=== PATIENT | male | born 1955 | race Caucasian/White ===

== ENCOUNTER 2018-02-10 10:27 | Day surgery (SDC) | payer MEDICAID ==
[2018-02-06 15:02] LABS: BASOPHILS % (AUTO) 0.2 % (0-1); EOSINOPHILS # (AUTO) 0.1 X10'3 (0-0.9); EOSINOPHILS % (AUTO) 1.3 % (0-6); LYMPHOCYTES # (AUTO) 1.5 X10'3 (1.1-4.8); LYMPHOCYTES % (AUTO) 13.2 % (21-51); MEAN CORPUSCULAR HEMOGLOBIN 30.3 PG (27.0-31.0); MEAN CORPUSCULAR HGB CONC 35.2 % (33.0-36.5); MEAN CORPUSCULAR VOLUME 86.1 FL (78-98); MEAN PLATELET VOLUME 8.1 FL (7.4-10.4); MONOCYTES # (AUTO) 0.4 X10'3 (0-0.9); MONOCYTES % (AUTO) 3.2 % (2-12); NEUTROPHILS # (AUTO) 9.1 X10'3 (1.8-7.7); NEUTROPHILS % (AUTO) 82.1 % (42-75); PRE OP HEMATOCRIT 42.3 % (42.0-52.0); PRE OP HEMOGLOBIN 14.9 g/dL (14.0-17.9); PRE OP PLATELET COUNT 254 X10'3 (140-440); RED BLOOD COUNT 4.92 X10'6 (4.70-6.10); RED CELL DISTRIBUTION WIDTH 14.6 % (11.5-14.5)
[2018-02-06 15:03] LABS: CLARITY,URINE CLEAR (Clear); COLOR,URINE YELLOW (Yellow); GLUCOSE, URINE NEGATIVE (Neg); KETONES,URINE NEGATIVE (Neg); LEUKOCYTE ESTERASE ,URINE NEGATIVE (Neg); NITRITES, URINE NEGATIVE (Neg); OCCULT BLOOD,URINE NEGATIVE (Neg); PROTEIN,URINE NEGATIVE (Neg); UROBILINOGEN,URINE 0.2 E.U/dL (0.2-1.0)
[2018-02-06 15:08] LABS: UA COLLECTION TYPE CLN CATCH MIDSTREAM
[2018-02-06 15:12] LABS: PRE OP INR 0.9 INR; PRE OP PROTIME 9.5 SECONDS (9.0-12.0)
[2018-02-06 15:17] LABS: ALKALINE PHOSPHATASE 108 IU/L (46-116); BLOOD UREA NITROGEN 12 MG/DL (7-18); BUN/CREATININE RATIO 16.9 (5.4-32.0); CALCIUM 8.8 MG/DL (8.5-10.1); CHLORIDE 100 MMOL/L (99-107); CREATININE 0.71 MG/DL (0.60-1.10); PRE OP ALT 38 U/L (30-65); PRE OP ANION GAP 7 (8-16); PRE OP AST 24 U/L (10-37); PRE OP BILIRUB, TOTAL 0.3 MG/DL (0.0-1.0); PRE OP GLUCOSE 117 MG/DL (70-104); PRE OP POTASSIUM 3.6 MMOL/L (3.4-5.1); PRE OP SODIUM 136 MMOL/L (135-145); TOTAL CARBON DIOXIDE 29.2 MMOL/L (24-32); eGFR > 90 ML/MIN
[~2018-02-10] VITALS: Ht 180.3 cm; Wt 78.9 kg
[2018-02-10] VITALS (8 sets, daily range): BP systolic 149–210; BP diastolic 70–114
[~2018-02-10 10:27] MED LIST: AMLO10TA4 PO; Cefazolin 2GM/50ML dext iso,osmotic IVPB IV ONE; HYDR-565 PO; LISI40TA4 PO; PANT-47 PO; SENN-161 PO; albuterol 2.5 MG/3 ML nebule NEB ONE; famotidine 20mg tablet PO ONE; meperidine/PF 25mg/ml syringe IV PRN; morphine 4 MG/ML inj SYRINge IV PRN; ondansetron/PF 4mg/2ml inj IV PRN; proCHLORperazine 10 MG/2 ml inj IV PRN; ringers solution, lacted 1,000 ML IV SCH
[2018-02-10] MEDS ORDERED: LIDOcaine 2% (20mg/ml) 5ml vial ONE (12:22)
[2018-02-10] MEDS ORDERED: propofol inj 20 ML IV ONE (12:22)
[2018-02-10] MEDS ORDERED: fentaNYL/PF 50MCG/1 ML 2ML syringe ONE (12:22)
[2018-02-10] MEDS ORDERED: midazolam 2 mg/2 ml injection ONE (12:23)
[2018-02-10] MEDS ORDERED: neostigmine methylsulfate 1 MG/ML 10ml vial ONE (12:42)
[2018-02-10] MEDS ORDERED: sevoflurane 250ml liquid IH ONE (12:42)
[2018-02-10] MEDS ORDERED: ondansetron/PF 4mg/2ml inj ONE (12:42)
[2018-02-10] MEDS ORDERED: dexamethasone sod phosphate 10mg/ml inj ONE (12:42)
[2018-02-10] MEDS ORDERED: rocuronium 10mg/ml inj IV ONE (12:47)
[2018-02-10] MEDS ORDERED: ketorolac trometh. 30mg/ml inj. ONE (13:34)
[2018-02-10] MEDS ORDERED: glycopyrrolate 0.2mg/ml inj ONE (13:37)
[2018-02-10] MEDS ORDERED: HYDROcodone/acetaminophen 10/325mg tab PO ONE (14:35)
== END 2018-02-10 14:56 | disposition home or self-care (01) ==
LOC: PAS 10:27
PROVIDERS: ATTEND Surgery
DX: K80.10 Calculus of gallbladder with chronic cholecystitis without obstruction (principal); J44.9 Chronic obstructive pulmonary disease, unspecified; F17.210 Nicotine dependence, cigarettes, uncomplicated; I10 Essential (primary) hypertension; M19.90 Unspecified osteoarthritis, unspecified site; K21.9 Gastro-esophageal reflux disease without esophagitis; I48.91 Unspecified atrial fibrillation; Z87.11 Personal history of peptic ulcer disease; Z72.89 Other problems related to lifestyle; Z86.19 Personal history of other infectious and parasitic diseases; Z79.891 Long term (current) use of opiate analgesic; Z79.899 Other long term (current) drug therapy; Z98.890 Other specified postprocedural states
CPT/HCPCS: 36415; 47562; 71046; 80053; 81003; 85025; 85610; 85730; 93005; 94640; A6251; J0690; J0780; J1100; J1885; J2001; J2175; J2250; J2270; J2405; J2704; J2710; J3010; J3490; J7120; A7000

== ENCOUNTER 2018-12-28 11:19 | Emergency (ER) | payer MEDICARE, MEDICAID ==
[~2018-12-28] VITALS: Ht 180.3 cm; Wt 75.0 kg
[~2018-12-28 11:19] MED LIST changes: -Cefazolin 2GM/50ML dext iso,osmotic IVPB IV ONE; +HYDR-4353 PO; -HYDR-565 PO; -SENN-161 PO; +SENN-162 PO; -albuterol 2.5 MG/3 ML nebule NEB ONE; -famotidine 20mg tablet PO ONE; -meperidine/PF 25mg/ml syringe IV PRN; -morphine 4 MG/ML inj SYRINge IV PRN; -ondansetron/PF 4mg/2ml inj IV PRN; -proCHLORperazine 10 MG/2 ml inj IV PRN; -ringers solution, lacted 1,000 ML IV SCH
[2018-12-28] MEDS ORDERED: albuterol 2.5 MG/3 ML nebule CONTNEB PRN (11:35)
[2018-12-28] MEDS ORDERED: methylPREDNISolone sod succ 125mg/2ml vial IV ONE (11:35)
[2018-12-28 12:01] LABS: BASOPHILS # (AUTO) 0.1 X10'3 (0-0.2); BASOPHILS % (AUTO) 0.8 % (0-1); EOSINOPHILS % (AUTO) 12.1 % (0-6); HEMATOCRIT 46.5 % (42.0-52.0); HEMOGLOBIN 15.6 g/dl (14.0-17.9); LYMPHOCYTES # (AUTO) 1.5 X10'3 (1.1-4.8); LYMPHOCYTES % (AUTO) 17.8 % (21-51); MEAN CORPUSCULAR HEMOGLOBIN 29.3 PG (27.0-31.0); MEAN CORPUSCULAR HGB CONC 33.5 g/dL (33.0-36.5); MEAN CORPUSCULAR VOLUME 87.6 FL (78-98); MEAN PLATELET VOLUME 8.4 FL (7.4-10.4); MONOCYTES # (AUTO) 0.6 X10'3 (0-0.9); MONOCYTES % (AUTO) 6.4 % (2-12); NEUTROPHILS # (AUTO) 5.4 X10'3 (1.8-7.7); NEUTROPHILS % (AUTO) 62.9 % (42-75); PLATELET COUNT 282 X10'3 (140-440); RED CELL DISTRIBUTION WIDTH 14.7 % (11.5-14.5); WHITE BLOOD COUNT 8.6 X10'3 (4.5-11.0)
[2018-12-28 12:15] LABS: ABG BASE EXCESS 2.4 mmol/L (-2.0-3.0); ABG HCO3 26.3 mmol/L (22.0-26.0); ABG OXYGEN SATURATION 95.1 % (95-98); ABG PCO2 (T) 38.6 mmHg (35.0-48.0); ABG PH (T) 7.451 (7.350-7.450); ABG PO2 (T) 73.2 mmHg (83-108); FCOHb 1.4 % (0.5-1.5); FLOW 2 L/min; FMetHb 0.2 % (0.3-1.12); FO2Hb 93.6 % (94-100); TOTAL HEMOGLOBIN 16.1 G/dl (14.0-18.0)
[2018-12-28 12:16] LABS: ALANINE AMINOTRANSFERASE 64 U/L (12-78); ALBUMIN 4.2 G/DL (3.4-5.0); ALBUMIN/GLOBULIN RATIO 1.1 (1.1-1.5); ALKALINE PHOSPHATASE 123 IU/L (46-116); ANION GAP 7 (8-16); ASPARTATE AMINO TRANSFERASE 22 U/L (10-37); BILIRUBIN,TOTAL 0.3 MG/DL (0.1-1.0); BLOOD UREA NITROGEN 17 MG/DL (7-18); BUN/CREATININE RATIO 27.4 (5.4-32.0); CALCIUM 9.8 MG/DL (8.5-10.1); CHLORIDE 102 MMOL/L (99-107); CREATININE 0.62 MG/DL (0.60-1.10); GLUCOSE 117 MG/DL (70-104); POTASSIUM 3.4 MMOL/L (3.5-5.1); SODIUM 138 MMOL/L (135-145); TOTAL CARBON DIOXIDE 28.7 MMOL/L (24-32); TOTAL PROTEIN 8.1 G/DL (6.4-8.2); eGFR > 90 ML/MIN
[2018-12-28] MEDS ORDERED: GUAI1TBM19 PO (13:32)
[2018-12-28] MEDS ORDERED: PRED20TA PO (13:32)
[2018-12-28] MEDS ORDERED: BECL7.3A INH (13:32)
[2018-12-28] MEDS ORDERED: ipratropium/albuterol 3ml nebule NEB ONE (13:35)
[2018-12-28 14:05] VITALS: BP 191/99
== END 2018-12-28 14:08 | disposition home or self-care (01) ==
LOC: ER 11:19
DX: J44.1 Chronic obstructive pulmonary disease with (acute) exacerbation (principal); I10 Essential (primary) hypertension; F12.90 Cannabis use, unspecified, uncomplicated; F17.200 Nicotine dependence, unspecified, uncomplicated; Z98.890 Other specified postprocedural states; Z56.0 Unemployment, unspecified; Z79.899 Other long term (current) drug therapy
CPT/HCPCS: 36415; 36600; 71045; 80053; 82803; 83605; 83880; 84484; 85018; 85025; 85610; 87040; 93005; 94640; 94644; 94760; 96374; 99285; J2930

== ENCOUNTER 2020-08-07 07:14 | Day surgery (SDC) | payer MEDICARE, MEDICAID ==
[~2020-08-07] VITALS: Ht 180.3 cm; Wt 84.2 kg
[2020-08-07] VITALS (11 sets, daily range): BP systolic 97–142; BP diastolic 54–74
[~2020-08-07 07:14] MED LIST changes: +BECL7.3A INH; +GUAI1TBM19 PO; -SENN-162 PO
[2020-08-07] MEDS ORDERED: normal saline 1,000 ML IV SCH (07:35)
[2020-08-07] MEDS ORDERED: diphenhydrAMINE 25mg capsule PO PRN (07:35)
[2020-08-07] MEDS ORDERED: iohexol 350 MG/1 ML 200ml bottle ONE (07:43)
[2020-08-07] MEDS ORDERED: fentaNYL/PF 50MCG/1 ML 2ML syringe ONE ×2 (07:43→08:37)
[2020-08-07] MEDS ORDERED: midazolam 2 mg/2 ml injection ONE ×4 (07:43→08:58)
[2020-08-07] MEDS ORDERED: heparin 1,000unit/ml 10ml vial 10 ML ONE (07:43)
[2020-08-07] MEDS ORDERED: LIDOcaine 1% (10mg/ml)w/preservative injection 20ml MDV ONE (07:43)
[2020-08-07] MEDS ORDERED: iohexol 350 MG/ML 50ML vial IV ONE (07:44)
[2020-08-07] MEDS ORDERED: LOSA25TA41 PO (07:59)
[2020-08-07] MEDS ORDERED: POTASSIUM PO (07:59)
[2020-08-07] MEDS ORDERED: supplements (07:59)
[2020-08-07] MEDS ORDERED: VARE0.5T (07:59)
[2020-08-07] MEDS ORDERED: SPIR25TA5 PO (07:59)
[2020-08-07] MEDS ORDERED: ATOR40TA72 PO (07:59)
[2020-08-07] MEDS ORDERED: PRED20TA (07:59)
[2020-08-07] MEDS ORDERED: AMLO10TA PO (07:59)
[2020-08-07] MEDS ORDERED: FURO20TA4 PO (07:59)
[2020-08-07 08:11] LABS: BASOPHILS % (AUTO) 0.3 % (0-1); EOSINOPHILS % (AUTO) 0.4 % (0-6); HEMATOCRIT 41.4 % (42.0-52.0); HEMOGLOBIN 14.2 g/dl (14.0-17.9); LYMPHOCYTES # (AUTO) 1.2 X10'3 (1.1-4.8); LYMPHOCYTES % (AUTO) 10.5 % (21-51); MEAN CORPUSCULAR HEMOGLOBIN 30.7 PG (27.0-31.0); MEAN CORPUSCULAR HGB CONC 34.3 g/dL (33.0-36.5); MEAN CORPUSCULAR VOLUME 89.6 FL (78-98); MEAN PLATELET VOLUME 7.7 FL (7.4-10.4); MONOCYTES # (AUTO) 0.5 X10'3 (0-0.9); MONOCYTES % (AUTO) 4.3 % (2-12); NEUTROPHILS # (AUTO) 9.9 X10'3 (1.8-7.7); NEUTROPHILS % (AUTO) 84.5 % (42-75); PLATELET COUNT 307 X10'3 (140-440); RED BLOOD COUNT 4.62 X10'6 (4.70-6.10); RED CELL DISTRIBUTION WIDTH 14.7 % (11.5-14.5); WHITE BLOOD COUNT 11.7 X10'3 (4.5-11.0)
[2020-08-07 08:25] LABS: ALBUMIN 3.9 G/DL (3.4-5.0); ANION GAP 10 (8-16); BLOOD UREA NITROGEN 17 MG/DL (7-18); BUN/CREATININE RATIO 23.3 (5.4-32.0); CALCIUM 8.9 MG/DL (8.5-10.1); CHLORIDE 100 MMOL/L (99-107); CREATININE 0.73 MG/DL (0.60-1.10); GLUCOSE 116 MG/DL (70-104); MAGNESIUM 1.6 MG/DL (1.5-2.4); POTASSIUM 3.5 MMOL/L (3.5-5.1); SODIUM 138 MMOL/L (135-145); TOTAL CARBON DIOXIDE 28.2 MMOL/L (24-32); eGFR > 90 ML/MIN
--- NOTE | 2020-08-07 13:30 | NUR ---
Groin dressing changed due to some pink oozing. Will monitor for any further bleeding/oozing. Addendum: 08/07/20 at 1521 by Baldomero Hendricks RN Amended: Links added.
--- NOTE | 2020-08-07 14:45 | NUR ---
Dressing continues clean and dry. Pt being discharged to home. Addendum: 08/07/20 at 1521 by Baldomero Hendricks RN Amended: Links added.
== END 2020-08-07 15:00 | disposition home or self-care (01) ==
LOC: SSTAY O 07:14
PROVIDERS: ATTEND Internal Medicine Cardiovascular Disease
DX: I70.213 Atherosclerosis of native arteries of extremities with intermittent claudication, bilateral legs (principal); I10 Essential (primary) hypertension; J44.9 Chronic obstructive pulmonary disease, unspecified; M81.0 Age-related osteoporosis without current pathological fracture; F10.10 Alcohol abuse, uncomplicated; Z87.01 Personal history of pneumonia (recurrent); Z79.899 Other long term (current) drug therapy; Z87.891 Personal history of nicotine dependence; Z90.49 Acquired absence of other specified parts of digestive tract; Z98.890 Other specified postprocedural states; Z82.49 Family history of ischemic heart disease and other diseases of the circulatory system
CPT/HCPCS: 36415; 37224; 75716; 80048; 83735; 85025; 85610; 93005; 99152; 99153; C1725; C1760; C1769; C1887; C1894; J1644; J2001; J2250; J3010; J7030; Q0163; Q9967; A4620; A6258

== ENCOUNTER 2020-08-14 05:56 | Day surgery (SDC) | payer MEDICARE, MEDICAID ==
[~2020-08-14] VITALS: Ht 180.3 cm; Wt 84.9 kg
[2020-08-14] VITALS (9 sets, daily range): BP systolic 130–156; BP diastolic 55–101
[~2020-08-14 05:56] MED LIST changes: +AMLO10TA PO; -AMLO10TA4 PO; +ATOR40TA72 PO; -BECL7.3A INH; +FURO20TA4 PO; -GUAI1TBM19 PO; -HYDR-4353 PO; +LISI40TA13 PO; -LISI40TA4 PO; +LOSA25TA41 PO; +POTASSIUM PO; +PRED20TA; +SPIR25TA5 PO; +VARE0.5T; +supplements
[2020-08-14] MEDS ORDERED: diphenhydrAMINE 25mg capsule PO PRN (06:20)
[2020-08-14] MEDS ORDERED: normal saline 1,000 ML IV SCH (06:20)
[2020-08-14 06:47] LABS: BASOPHILS # (AUTO) 0.1 X10'3 (0-0.2); BASOPHILS % (AUTO) 0.8 % (0-1); EOSINOPHILS # (AUTO) 0.2 X10'3 (0-0.9); EOSINOPHILS % (AUTO) 2.5 % (0-6); HEMATOCRIT 39.9 % (42.0-52.0); HEMOGLOBIN 13.7 g/dl (14.0-17.9); LYMPHOCYTES % (AUTO) 10.2 % (21-51); MEAN CORPUSCULAR HEMOGLOBIN 30.4 PG (27.0-31.0); MEAN CORPUSCULAR HGB CONC 34.2 g/dL (33.0-36.5); MEAN CORPUSCULAR VOLUME 88.9 FL (78-98); MEAN PLATELET VOLUME 7.7 FL (7.4-10.4); MONOCYTES # (AUTO) 0.6 X10'3 (0-0.9); MONOCYTES % (AUTO) 6.6 % (2-12); NEUTROPHILS # (AUTO) 7.6 X10'3 (1.8-7.7); NEUTROPHILS % (AUTO) 79.9 % (42-75); PLATELET COUNT 344 X10'3 (140-440); RED BLOOD COUNT 4.49 X10'6 (4.70-6.10); RED CELL DISTRIBUTION WIDTH 15.1 % (11.5-14.5); WHITE BLOOD COUNT 9.5 X10'3 (4.5-11.0)
[2020-08-14 06:58] LABS: ALBUMIN 4.1 G/DL (3.4-5.0); ANION GAP 12 (8-16); BLOOD UREA NITROGEN 19 MG/DL (7-18); BUN/CREATININE RATIO 24.1 (5.4-32.0); CALCIUM 9.5 MG/DL (8.5-10.1); CHLORIDE 99 MMOL/L (99-107); CREATININE 0.79 MG/DL (0.60-1.10); GLUCOSE 103 MG/DL (70-104); MAGNESIUM 1.9 MG/DL (1.5-2.4); POTASSIUM 3.7 MMOL/L (3.5-5.1); SODIUM 139 MMOL/L (135-145); TOTAL CARBON DIOXIDE 27.6 MMOL/L (24-32); eGFR > 90 ML/MIN
[2020-08-14] MEDS ORDERED: iohexol 350 MG/1 ML 200ml bottle ONE (07:32)
[2020-08-14] MEDS ORDERED: LIDOcaine 1% (10mg/ml)w/preservative injection 20ml MDV ONE (07:32)
[2020-08-14] MEDS ORDERED: heparin 1,000unit/ml 10ml vial 10 ML ONE ×2 (07:32→12:12)
[2020-08-14] MEDS ORDERED: fentaNYL/PF 50MCG/1 ML 2ML syringe ONE ×5 (07:32→11:34)
[2020-08-14] MEDS ORDERED: midazolam 2 mg/2 ml injection ONE ×9 (07:32→11:48)
[2020-08-14] MEDS ORDERED: LIDOcaine 1% 30ml preserv. free vial ONE (10:07)
[2020-08-14] MEDS ORDERED: protamine sulfate 10mg/ml inj. ONE (11:49)
[2020-08-14] MEDS ORDERED: iohexol 350 MG/ML 50ML vial IV ONE (12:16)
[2020-08-14] MEDS ORDERED: aspirin 325mg tablet ONE (12:36)
[2020-08-14] MEDS ORDERED: ticagrelor 90mg tablet ONE (12:36)
[2020-08-14] MEDS ORDERED: proCHLORperazine 10 MG/2 ml inj IV PRN (13:15)
[2020-08-14] MEDS ORDERED: HYDROcodone/acetaminophen 10/325mg tab PO PRN (13:15)
[2020-08-14] MEDS ORDERED: ondansetron/PF 4mg/2ml inj IV PRN (13:15)
[2020-08-14] MEDS ORDERED: HYDROcodone/acetaminophen 5mg/325mg tablet PO PRN (13:15)
== END 2020-08-14 17:10 | disposition home or self-care (01) ==
LOC: SSTAY O 05:56
PROVIDERS: ATTEND Internal Medicine Cardiovascular Disease
DX: I70.213 Atherosclerosis of native arteries of extremities with intermittent claudication, bilateral legs (principal); J44.9 Chronic obstructive pulmonary disease, unspecified; M79.605 Pain in left leg; M79.604 Pain in right leg; I10 Essential (primary) hypertension; E78.5 Hyperlipidemia, unspecified; K21.9 Gastro-esophageal reflux disease without esophagitis; M81.0 Age-related osteoporosis without current pathological fracture; F10.10 Alcohol abuse, uncomplicated; F12.90 Cannabis use, unspecified, uncomplicated; Z87.01 Personal history of pneumonia (recurrent); Z90.49 Acquired absence of other specified parts of digestive tract; Z98.890 Other specified postprocedural states; Z79.899 Other long term (current) drug therapy; Z82.49 Family history of ischemic heart disease and other diseases of the circulatory system
CPT/HCPCS: 36247; 36415; 37226; 75710; 80048; 83735; 85025; 85610; 93005; C1725; C1729; C1760; C1769; C1876; C1894; J1644; J2001; J2250; J2720; J3010; J7030; Q0163; Q9967; 99152; 99153; A4620; A5120; A6258

== ENCOUNTER 2022-12-23 08:28 | Day surgery (SDC) | payer MEDICARE, MEDICAID ==
[2022-12-19 15:25] LABS: BASOPHILS % (AUTO) 0.2 % (0-1); EOSINOPHILS # (AUTO) 0.2 X10'3 (0-0.9); EOSINOPHILS % (AUTO) 1.7 % (0-6); LYMPHOCYTES # (AUTO) 1.4 X10'3 (1.1-4.8); LYMPHOCYTES % (AUTO) 15.5 % (21-51); MEAN CORPUSCULAR HEMOGLOBIN 29.4 PG (27.0-31.0); MEAN CORPUSCULAR HGB CONC 33.9 g/dL (33.0-36.5); MEAN CORPUSCULAR VOLUME 86.6 FL (78-98); MEAN PLATELET VOLUME 7.9 FL (7.4-10.4); MONOCYTES # (AUTO) 0.7 X10'3 (0-0.9); MONOCYTES % (AUTO) 7.9 % (2-12); NEUTROPHILS % (AUTO) 74.7 % (42-75); PRE OP HEMATOCRIT 38.5 % (42.0-52.0); PRE OP HEMOGLOBIN 13.1 g/dL (14.0-17.9); PRE OP PLATELET COUNT 271 X10'3 (140-440); RED BLOOD COUNT 4.45 X10'6 (4.70-6.10); RED CELL DISTRIBUTION WIDTH 14.5 % (11.5-14.5)
[2022-12-19 15:34] LABS: ALBUMIN/GLOBULIN RATIO 1.2 (1.1-1.5); ALKALINE PHOSPHATASE 74 IU/L (46-116); BLOOD UREA NITROGEN 26 MG/DL (7-18); BUN/CREATININE RATIO 32.9 (10.0-20.0); CALCIUM 9.3 MG/DL (8.5-10.1); CHLORIDE 100 MMOL/L (99-107); CREATININE 0.79 MG/DL (0.60-1.10); PRE OP ALT 28 U/L (30-65); PRE OP ANION GAP 6 (8-16); PRE OP AST 18 U/L (10-37); PRE OP BILIRUB, TOTAL 0.3 MG/DL (0.0-1.0); PRE OP GLUCOSE 113 MG/DL (70-104); PRE OP POTASSIUM 4.1 MMOL/L (3.4-5.1); PRE OP SODIUM 134 MMOL/L (135-145); TOTAL CARBON DIOXIDE 28.3 MMOL/L (24-32); TOTAL PROTEIN 7.3 G/DL (6.4-8.2); eGFR > 90 ML/MIN
[~2022-12-23] VITALS: Ht 180.3 cm; Wt 73.4 kg
[2022-12-23] VITALS (7 sets, daily range): BP systolic 159–198; BP diastolic 90–100
[~2022-12-23 08:28] MED LIST changes: +ALBU18HF2 INH; +ATOR40TA7 PO; -ATOR40TA72 PO; +BUDE10.2 INH; +BUPIVAcaine/PF 2.5mg/ml (0.25%) 10ml vial ONE; +CLOP75TA15 PO; -FURO20TA4 PO; +LIDOcaine 1% 30ml preserv. free vial ONE; -LOSA25TA41 PO; -POTASSIUM PO; -VARE0.5T; +albuterol 2.5 MG/3 ML nebule NEB ONE; +cefazolin 2gm/D5W 100mL 100 ML IV ONE; +famotidine 20mg tablet PO ONE; +ringers solution, lacted 1,000 ML IV SCH; -supplements
[2022-12-23] MEDS ORDERED: midazolam 1 mg/ML 2ml injection ONE (11:53)
[2022-12-23] MEDS ORDERED: fentaNYL/PF 50MCG/1 ML 2ML syringe ONE (11:53)
[2022-12-23] MEDS ORDERED: BUPIVAcaine/PF 2.5mg/ml (0.25%) 10ml vial IJ ONE (12:11)
--- NOTE | 2022-12-23 12:27 | NUR ---
Received from OR via , accompanied by Anesthesiologist TRIP AND OR NURSE and report given by Anesthesiolgist. PT IS AWAKE AND ALERT AND DENIES PAIN OR DISCOMFORT. LT DRESSING; CDI. 20G TO RT HAND. VSS WITH SBP ELEVATED BUT WITHIN 20 SBP TO PRE SURGICAL LEVEL. Addendum: 12/23/22 at 1244 by Ely Cisneros RN Amended: Links added.
--- NOTE | 2022-12-23 13:17 | NUR ---
I HAVE REVIEWED D/C INSTRUCTIONS WITH PATIENT and they have verbalized understanding patient d/c home with all belongings and family gave transport home. Addendum: 12/23/22 at 1347 by Ely Cisneros RN Amended: Links added.
== END 2022-12-23 13:17 | disposition home or self-care (01) ==
LOC: PAS 08:28
PROVIDERS: ATTEND Orthopaedic Surgery Hand Surgery
DX: M67.432 Ganglion, left wrist (principal); J43.9 Emphysema, unspecified; K21.9 Gastro-esophageal reflux disease without esophagitis; I10 Essential (primary) hypertension; F17.210 Nicotine dependence, cigarettes, uncomplicated; Z79.899 Other long term (current) drug therapy; Z79.01 Long term (current) use of anticoagulants; Z72.89 Other problems related to lifestyle; Z98.890 Other specified postprocedural states; Z90.49 Acquired absence of other specified parts of digestive tract
CPT/HCPCS: 25111; 36415; 71046; 80047; 80053; 85025; 94640; J0690; J2250; J3010; J3490; J7030; J7120; Z7506; Z7512; A4215; A4618; A7000